=== PATIENT | female | born 1955 | race Caucasian/White ===

== ENCOUNTER → 2017-04-30 | Outpatient (CLI) | payer OTHER ==
--- NOTE | 2017-04-30 14:49 | US ---
EXAMINATION TYPE: US thyroid st tissue head/neck DATE OF EXAM: 04/30/2017 COMPARISON: 06/21/2015 CLINICAL HISTORY: E04.1 SINGLE THYROID NODULE. Right thyroidectomy 2 years ago GLAND SIZE: Right Lobe: Surgically absent Left Lobe: 4.0 x 1.3 x 1.2 cm Overall Parenchyma: homogeneous Isthmus Thickness: 0.2 cm NODULES RIGHT: # of nodules measured on right: Surgically absent LEFT: # of nodules measured on left: 1 1. 0.3 X 0.3 x 0.3 cm hypoechoic nodule at the lower pole with echogenic foci, well defined margins ; . This nodule is as tall as it is wide. and shows no intranodular vascularity. Prior size: no prior documented ISTHMUS: # of nodules measured in the isthmus: 0 Bilateral neck scanned, no evidence of lymphadenopathy. IMPRESSION: 1. STATUS POST RIGHT-SIDED THYROIDECTOMY. 2. TINY, 3 MM LEFT THYROID NODULE.
== END | disposition home or self-care (01) ==
LOC: RADUSWWP 14:06
PROVIDERS: ATTEND Family Medicine
DX: E04.1 Nontoxic single thyroid nodule (principal); E89.0 Postprocedural hypothyroidism
CPT/HCPCS: 76536

== ENCOUNTER → 2018-03-04 | Outpatient (CLI) | payer OTHER ==
--- NOTE | 2018-03-08 09:14 | MM ---
Reason for exam: screening (asymptomatic). Last mammogram was performed 2 years and 2 months ago. History: Patient is postmenopausal. Family history of breast cancer in father at age 50. Took estrogen for 1 year. Physical Findings: A clinical breast exam by your physician is recommended on an annual basis and results should be correlated with mammographic findings. MG Screening Mammo w CAD Bilateral CC and MLO view(s) were taken. Prior study comparison: December 20, 2015, bilateral MG screening mammo w CAD. March 13, 2013, bilateral digital screening mammo w/CAD. There are scattered fibroglandular densities. Pacemaker generator on the left. No significant changes when compared with prior studies. ASSESSMENT: Negative, BI-RAD 1 RECOMMENDATION: Routine screening mammogram of both breasts in 1 year.
== END | disposition home or self-care (01) ==
LOC: RADMAMWWP 11:17
PROVIDERS: ATTEND Obstetrics & Gynecology
DX: Z12.31 Encounter for screening mammogram for malignant neoplasm of breast (principal); Z80.3 Family history of malignant neoplasm of breast
CPT/HCPCS: 77067

== ENCOUNTER → 2019-04-07 | Outpatient (CLI) | payer OTHER ==
--- NOTE | 2019-04-08 12:56 | US ---
EXAMINATION TYPE: US thyroid st tissue head/neck DATE OF EXAM: 04/07/2019 COMPARISON: 04/30/2017 CLINICAL HISTORY: E04.1 Thyroid Nodule. Right thyroidectomy, follow up left thyroid nodule GLAND SIZE: Right Lobe: Surgically absent Left Lobe: 4.5 x 1.2 x 1.4cm Overall Parenchyma: homogeneous Isthmus Thickness: 0.3 cm NODULES RIGHT: # of nodules measured on right: 0, surgically absent right thyroid gland. LEFT: # of nodules measured on left: 0.2 x 0.2 x 0.2 cm hypoechoic nodule, previously measuring 0 .3 cm. ISTHMUS: # of nodules measured in the isthmus: 0 IMPRESSION: No interval enlargement of the previously seen approximately 2 mm left thyroid nodule in comparison t o the exam of 2016. This is presumably benign. Surgical absence of the right thyroid gland.
== END | disposition home or self-care (01) ==
LOC: RADUSWWP 16:50
PROVIDERS: ATTEND Family Medicine
DX: E04.1 Nontoxic single thyroid nodule (principal); E89.0 Postprocedural hypothyroidism
CPT/HCPCS: 76536

== ENCOUNTER → 2020-08-30 | Outpatient (CLI) | payer OTHER ==
--- NOTE | 2020-08-30 15:58 | CT ---
EXAMINATION TYPE: CT upper extremity RT wo con DATE OF EXAM: 08/30/2020 COMPARISON: None HISTORY: Right thumb pain without injury for 1 year. TECHNIQUE: CT imaging of the right hand performed without intravenous contrast. Coronal and sagittal reformatted images obtained. Three-dimensional images were generated and utilized on a separate works tation. CT DLP: 179.5 mGycm Automated exposure control for dose reduction was used. FINDINGS: No acute fracture or dislocation of the right hand. There is ulnar subluxation of the base of the fir st digit proximal phalanx in relation to the metacarpal head. Degenerative subchondral cystic changes , joint space narrowing, and mild sclerosis of the first metacarpophalangeal joint. Tiny well cortica caleb ossific density at the volar aspect of the first interphalangeal joint may represent old avulsion fracture fragment. Subchondral cystic degenerative change of the ulnar carpal bones. Remaining joint spaces are maintained. Radioulnar alignment normal. Myofascial planes are maintained. No soft tissue edema. 3-dimensional imaging consistent with the above findings. IMPRESSION: 1. No acute fracture or dislocation of the right hand. 2. 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 3. Subchondral cystic degenerative change of the carpal bones. 4. Tiny well-corticated calcific density at the volar base of the first digit distal phalanx may repr esent old avulsion fracture fragment.
== END | disposition home or self-care (01) ==
LOC: RADCTMAIN 11:00
PROVIDERS: ATTEND Family Medicine
DX: M18.11 Unilateral primary osteoarthritis of first carpometacarpal joint, right hand (principal); S63.061A Subluxation of metacarpal (bone), proximal end of right hand, initial encounter; M85.641 Other cyst of bone, right hand

== ENCOUNTER → 2021-08-15 | Outpatient (CLI) | payer OTHER ==
[2021-08-15 14:46] LABS: Basophils # (A) 0.1 k/uL (0-0.2); Basophils % (A) 1 %; Eosinophils # (A) 0.3 k/uL (0-0.7); Eosinophils % (A) 3 %; HCT 45.4 % (34.0-46.0); HGB 14.6 gm/dL (11.4-16.0); Lymphocytes # (A) 2.3 k/uL (1.0-4.8); Lymphocytes % (A) 27 %; MCH 31.4 pg (25.0-35.0); MCHC 32.3 g/dL (31.0-37.0); MCV 97.2 fL (80.0-100.0); Mean Platelet Volume 8.3; Monocytes # (A) 0.4 k/uL (0-1.0); Monocytes % (A) 5 %; Neutrophils # (A) 5.1 k/uL (1.3-7.7); Neutrophils % (A) 61 %; Platelet Count 237 k/uL (150-450); RBC 4.66 m/uL (3.80-5.40); RDW 12.6 % (11.5-15.5); WBC 8.4 k/uL (3.8-10.6)
[2021-08-15 14:57] LABS: African American GFR (CKD) >90 (>60 ml/min/1.73 sqM); Anion Gap 7 mmol/L; Blood Urea Nitrogen 42 mg/dL (7-17); Carbon Dioxide 25 mmol/L (22-30); Chloride 103 mmol/L (98-107); Glucose 86 mg/dL (74-99); Non-African American GFR(CKD) >90 (>60 ml/min/1.73 sqM); Potassium 4.7 mmol/L (3.5-5.1); Sodium 135 mmol/L (137-145)
== END | disposition home or self-care (01) ==
LOC: LABPAT 13:32
PROVIDERS: ATTEND Obstetrics & Gynecology
DX: Z01.812 Encounter for preprocedural laboratory examination (principal); N81.11 Cystocele, midline
CPT/HCPCS: 36415; 80051; 82565; 82947; 84520; 85025; 87086

== ENCOUNTER 2021-08-25 07:14 | Day surgery (SDC) | payer OTHER ==
[2021-08-20 10:09] VITALS: BMI 27.4
--- NOTE | 2021-08-21 09:59 | HP ---
HISTORY AND PHYSICAL This is a 66-year-old white female who presents with increasing pelvic organ prolapse and urge incontinence. She is menopausal and not receiving hormone replacement therapy. She denies any vaginal bleeding. She is having no additional vasomotor symptoms. She is currently sexually active. She is declining pessary use and is presenting today for surgical repair. PAST MEDICAL HISTORY: Is significant for asthma, hypothyroidism, obesity. PAST SURGICAL HISTORY: Cholecystectomy in 1992, gastric bypass 2001, hand surgery 2019, of the right hand. Heel spurs removed in 1989. Right knee replacement 2008, on the right knee, left knee replaced 2016. Pacemaker placed 2014. Right thyroidectomy. CURRENT MEDICATIONS: Adderall XR 30 mg capsules twice daily. Bupropion, hydrochlorothiazide 150 mg once daily. Celexa daily. Klonopin daily at bedtime. Singulair 10 mg once daily in the evening. Synthroid 112 mcg each morning. Trazodone 50 mg orally daily. Vitamin D2 capsules daily, Voltaren daily. ALLERGIES: None known. FAMILY HISTORY: Significant for male breast cancer in her father age 49. REPRODUCTIVE HISTORY: Normal spontaneous vaginal delivery x4, all unremarkable. SOCIAL HISTORY: Patient drinks caffeine daily, she denies alcohol or tobacco. She works with the [employer]. EXAM: Patient is 5 foot 6.25 inches, 173 pounds, BMI 27, 98% O2 saturation on room air, pulse 81, blood pressure 132/80. HEENT exam reveals no thyromegaly, trachea midline, good dentition. CHEST: Clear to auscultation in all cunningham, anteriorly and posteriorly by auscultation. CARDIAC exam reveals a regular rate and rhythm, pacemaker noted. The BREASTS are bilaterally symmetric to inspection with no skin dimpling, nipple discharge, axillary adenopathy, or discernible lesions or masses. ABDOMEN: Soft, nontender, no organosplenomegaly, no CVA tenderness. Active bowel sounds. No herniorrhaphy. EXTREMITIES revealed no edema, there is limited range of motion in the knees. Otherwise, good peripheral pulses. External GENITALIA are normal in appearance for age without discharge or inflammatory lesions. There is a grade 3-4 cystocele present, grade 2-3 uterine prolapse. No obvious rectocele. Uterus is small, mobile, midline and nontender. Adnexa are negative bilaterally. Cervix appears healthy to examination, Pap smear up to date and normal. Anus is within normal limits, no hemorrhoids, good sphincter tone, FIT negative stool. NEUROLOGIC: The patient is completely intact, alert and oriented x3 with good judgment. IMPRESSION: Increasingly symptomatic grade 3-4 cystocele, grade 2-3 uterine prolapse. Patient wishing surgical repair, declining option for pessary. Second opinion is offered and declined. PLAN: We will proceed with vaginal hysterectomy, anterior colporrhaphy. Patient understands risks of bleeding, infection, perforation or damage to bowel, bladder, ureters, or indeed any pelvic or abdominal organs. She understands the risks of aspiration, nerve damage, or even , anesthetic. All questions have been answered and I believe patient understands our discussion with no question or issue. MMODL / IJN: [id number] /
[~2021-08-25 07:14] MED LIST: DEXAMETHASONE SOD PHOSPHATE 4 MG/ML 1 ML VIAL IV ONE; HYDROmorphone 0.5 MG/0.5 ML SYRINGE IVP PRN; LIDOCAINE 1% (10MG/ML) FOR IV START INTRADERMA PRN; ONDANSETRON 4 MG/2 ML VIAL IVP ONE; ONDANSETRON 4 MG/2 ML VIAL IVP PRN
[2021-08-25] MEDS: LACTATED RINGERS 1,000 ML IV SCH ×2 (08:05→16:40)
[2021-08-25] MEDS ORDERED: MIDAZOLAM 2 MG/2 ML VIAL IVP ONE (08:18)
[2021-08-25] MEDS ORDERED: ACETAMINOPHEN IV (For NPO) 1,000 MG/100 ML VIAL ONE (09:21)
[2021-08-25] MEDS ORDERED: LIDOCAINE 1% INJ 10MG/ML (20 ML MDV) ONE (09:21)
[2021-08-25] MEDS ORDERED: SUCCINYLCHOLINE CHLORIDE 100 MG/5 ML SYR IV ONE (09:21)
[2021-08-25] MEDS ORDERED: fentaNYL (PF) 50 MCG/ML 2 ML AMP ONE (09:21)
[2021-08-25] MEDS ORDERED: MORPHINE SULFATE (PF) 0.3 MG/0.3 ML SYR ONE (09:21)
[2021-08-25] MEDS ORDERED: PROPOFOL 10 MG/ML 20 ML VIAL IV ONE (09:21)
[2021-08-25] MEDS ORDERED: KETOROLAC 15 MG/ML 1 ML VIAL ONE (09:21)
[2021-08-25] MEDS ORDERED: VASOPRESSIN 20 UNIT/ML 1 ML VIAL SQ ONE (09:46)
[2021-08-25] MEDS ORDERED: BACITRACIN ZINC 500 UNIT/GM OINT 28.4 GM TUBE TOPICAL ONE (10:04)
[2021-08-25] MEDS ORDERED: LACTATED RINGERS 1,000 ML IV ONE (10:21)
[2021-08-25] MEDS ORDERED: GELATIN SPONGE,ABSORB (SMALL) 1 EACH SPONGE TOPICAL ONE (10:25)
[2021-08-25] MEDS ORDERED: IBUPROFEN 600 MG TAB PO PRN (10:52)
[2021-08-25] MEDS ORDERED: METOCLOPRAMIDE 5 MG/ML 2 ML VIAL IVP PRN (10:52)
[2021-08-25] MEDS ORDERED: ZOLPIDEM 5 MG TAB PO PRN (10:52)
[2021-08-25] MEDS ORDERED: KETOROLAC 15 MG/ML 1 ML VIAL IVP PRN (10:52)
[2021-08-25] MEDS ORDERED: SIMETHICONE 80 MG CHEWABLE PO PRN (10:52)
--- NOTE | 2021-08-25 10:52 | P.OP ---
Date of Procedure: 08/25/21 Preoperative Diagnosis: Genetic uterine prolapse, cystocele Postoperative Diagnosis: Same, normal-appearing ovaries bilaterally Procedure(s) Performed: Vaginal hysterectomy, cystocele repair Anesthesia: GUNJAN Surgeon: Lillian Ortiz Associate Team Physician #1: Morgan Sheehan Estimated Blood Loss (ml): 125 IV fluids (ml): 600 Urine output (ml): 450 Pathology: other (Cervix and uterus) Condition: stable Disposition: PACU Operative Findings: Atrophic, normal-appearing ovaries bilaterally Description of Procedure: Patient is brought to the operating suite where a general anesthetic is administered after a spinal with Duramorph was placed in the preoperative area. She is placed in the dorsal lithotomy position. The cervix, vagina, perineal bodies are all prepped and draped in usual sterile fashion. The appropriate timeout is performed to assure proper patient and procedural identification. Antibiotics are given. The weighted speculum was placed into the vagina. The bladder is drained for approximately 450 mL of clear yellow urine. The anterior lip of the cervix is grasped with a double-tooth tenaculum. The cervix is injected circumferentially with a dilute Pitressin solution. A [place] blade scalpel is used to incise circumferentially with a V positioning at 6:00. Sponge rolled finger is used to sweep the mucosa from the underlying plane. At all times the bladder is Well from the operative field to avoid bladder and/or ureteral injury. Peritoneum is entered at 6:00 and suture tied with 2-0 Vicryl. Leighton clamps are used across the uterosacral ligaments, these are clamped cut and suture ligated and held laterally with a hemostat. Uterine vasculature is identified, clamped cut and suture ligated. Please note that 0 Vicryl sutures used for the entire hysterectomy portion of the procedure. 2 additional pedicles are taken superior to the vessels. The uterus is then "walked out". Peritoneum is entered at 6:00, Leighton clamps are used across the final pedicles. Cervix and uterus are removed and sent to pathology. The pedicles are suture tied with 0 Vicryl, flashed, and retied for excellent hemostasis. Bilateral ovaries appeared normal to inspection. All pedicles are vascular Demetrius secure and dry. The speculum is then changed to the shallow billed speculum. The 2-0 Vicryl at 6:00 is brought around in a pursestring fashion to close the peritoneum. Care is taken to keep all bowel and fat out of the closure. The uterosacral ligaments are now brought across to incorporate the opposite ligament and vaginal mucosa. 2 additional trlyae-ul-esawn sutures of 0 Vicryl are used to close the cuff. The anterior portion is left open, held with Allis clamps. The cystocele repair is then started. The anterior vaginal mucosa is injected with the same dilute Pitressin solution and a plane is developed. Metzenbaum scissors are used in the midline to incise the mucosa. Sponge rolled finger is used to sweep the underlying mucosa from the overlying fascial edge. Florez catheter is replaced, urine is clear. Edges are brought together in the midline using 0 Vicryl suture to reduce the cystocele. The redundant mucosa is trimmed with Metzenbaum scissors. 2-0 Vicryl is used in a whipstitch to close the anterior vaginal mucosa. A small portion of Gelfoam is placed high in the left corner for a small amount of oozing. Hemostasis is excellent. Vagina is packed with one-inch iodophor gauze with basic tracing. Florez again is noted to be draining clear urine. All sponge needle and enhancement counts are correct. Patient is brought back to recovery room in very good condition with stable vital signs including a blood pressure of 114/76, pulse 61.
[2021-08-25 12:25] VITALS: RESP 16
[2021-08-25] MEDS: diphenhydrAMINE 50 MG/ML 1 ML VIAL IVP PRN ×2 (16:38→22:28)
[2021-08-25] MEDS ORDERED: MONTELUKAST 10 MG TAB PO SCH (21:00)
[2021-08-25] MEDS ORDERED: clonazePAM 1 MG TAB PO ONE (21:00)
[2021-08-25] MEDS ORDERED: BACLOFEN 10 MG TAB PO PRN (21:00)
[2021-08-25] MEDS ORDERED: CITALOPRAM HYDROBROMIDE 20 MG TAB PO SCH (21:00)
[2021-08-25] MEDS ORDERED: traZODone HCL 50 MG TAB PO SCH (21:00)
[2021-08-26 03:05] VITALS: TEMP 98
[2021-08-26] MEDS ORDERED: LEVOTHYROXINE 125 MCG TAB PO SCH (06:30)
--- NOTE | 2021-08-26 07:46 | P.DS ---
Providers Date of admission: 08/25/21 Expected date of discharge: 08/26/21 Attending physician: Lillian Ortiz Primary care physician: [facility] Course: This is a 66-year-old female who presented with increasingly symptomatic uterine prolapse and cystocele for surgical repair. She was counseled thoroughly and declined the option of pessary. She is an otherwise healthy individual, please see dictated history and physical for details. Under my care yesterday she underwent vaginal hysterectomy and anterior colporrhaphy. Vaginal packing was placed along with Florez catheter. Ovaries were left in situ per her wishes. Surgery was unremarkable, please see dictated operative notes for details. This morning the patient is doing well. Florez catheter and vaginal packing had been removed. Vital signs are stable and she is afebrile. There is only scant vaginal bleeding. Chest is clear in all cunningham. Extremities are negative for edema. Abdomen is soft and nontender, active bowel sounds. No CVA tenderness. Bladder training is pending spontaneous void. Patient is judged to be in very good condition for discharge home. After successful void and measurement of post void residual later today, she will be sent home. She will follow-up with me in the office in 2 weeks. She is reminded no intercourse, tampons or douching. She will use [id number] Advil or Aleve, or Motrin as needed for pain. She is instructed to call me with any fevers shakes or chills, foul smelling or copious vaginal drainage, with any pain not alleviated by [id number] products, or indeed with any concerns. She will resume all of her home medications at this time. No heavy lifting, no driving for 2 weeks, no vacuuming. Assessment: Doing well postoperative day #1 Patient Condition at Discharge: Good Plan - Discharge Summary Discharge Rx Participant: No New Discharge Prescriptions: No Action Diclofenac Sodium [Voltaren] 75 mg PO BID traZODone HCL [Desyrel] 50 mg PO HS clonazePAM [KlonoPIN] 2 mg PO HS buPROPion HCL [Wellbutrin XL] 300 mg PO DAILY Levothyroxine Sodium [Synthroid] 125 mcg PO DAILY Citalopram Hydrobromide [CeleXA] 40 mg PO HS Dextroamphetamine/Amphetamine [Adderall] 30 mg PO DAILY Cyanocobalamin [Vitamin B-12] 5,000 mcg SL DAILY Cholecalciferol [Vitamin D3 (25 Mcg = 1000 Iu)] 5,000 unit PO DAILY Trospium Chloride 20 mg PO DAILY Montelukast [Singulair] 10 mg PO DAILY Baclofen [Lioresal] 20 mg PO HS Discharge Medication List Citalopram Hydrobromide [CeleXA] 40 mg PO HS 08/06/15 [History] Diclofenac Sodium [Voltaren] 75 mg PO BID 08/06/15 [History] Levothyroxine Sodium [Synthroid] 125 mcg PO DAILY 08/06/15 [History] buPROPion HCL [Wellbutrin XL] 300 mg PO DAILY 08/06/15 [History] clonazePAM [KlonoPIN] 2 mg PO HS 08/06/15 [History] traZODone HCL [Desyrel] 50 mg PO HS 08/06/15 [History] Cholecalciferol [Vitamin D3 (25 Mcg = 1000 Iu)] 5,000 unit PO DAILY 09/06/15 [History] Cyanocobalamin [Vitamin B-12] 5,000 mcg SL DAILY 09/06/15 [History] Dextroamphetamine/Amphetamine [Adderall] 30 mg PO DAILY 09/06/15 [History] Baclofen [Lioresal] 20 mg PO HS 08/20/21 [History] Montelukast [Singulair] 10 mg PO DAILY 08/20/21 [History] Trospium Chloride 20 mg PO DAILY 08/20/21 [History] Follow up Appointment(s)/Referral(s): Lillian Ortiz MD [STAFF PHYSICIAN] - 2 Weeks Discharge Disposition: HOME SELF-CARE
[2021-08-26 07:49] VITALS: BP 115/71; PULSE 64
[2021-08-26] MEDS ORDERED: buPROPion 100 MG TAB PO SCH (09:00)
[2021-08-26] MEDS ORDERED: ACETAMINOPHEN TAB 325 MG TAB PO PRN (10:53)
--- NOTE | 2021-08-26 13:15 | P.ANPRN ---
Procedure Note - Anesthesia - Epidural/Spinal Spinal Time Out Performed: Yes Date of Procedure: 08/26/21 Procedure Start Time: 08:17 Procedure Stop Time: 08:20 Location of Patient: PreOp Indication: Acute Post-Operative Pain, Requested by Surgeon Sedation Type: Sedate with meaningful contact maintained Preparation: Sterile Prep Position: Sitting Needle Guage: 25 Blood Aspirated: No Pain Paresthesia on Injection Noted: No Events: Uneventful and Well Tolerated (duramorph 300 leidy plus fentayl 25 leidy)
== END 2021-08-26 11:05 | disposition home or self-care (01) ==
LOC: OR 07:14 → 4FBP 10:53 → OR 08-26 11:05
PROVIDERS: ATTEND Obstetrics & Gynecology
DX: N81.4 Uterovaginal prolapse, unspecified (principal); J45.909 Unspecified asthma, uncomplicated; E66.9 Obesity, unspecified; Z68.28 Body mass index [BMI] 28.0-28.9, adult; Z90.49 Acquired absence of other specified parts of digestive tract; Z98.84 Bariatric surgery status; E89.0 Postprocedural hypothyroidism; Z98.890 Other specified postprocedural states; Z96.651 Presence of right artificial knee joint; Z95.0 Presence of cardiac pacemaker; Z79.899 Other long term (current) drug therapy
CPT/HCPCS: 86900; 86901; 86850; 88307; 87635; 58260; 57240; J2250; J1200; J1100; J0690; J2405; J2001; J2274; J3010; J0131; J1885; J0330; J2704

== ENCOUNTER → 2021-10-08 | Outpatient (CLI) | payer OTHER ==
--- NOTE | 2021-10-09 11:53 | MM ---
Reason for exam: screening (asymptomatic). Last mammogram was performed 3 years and 7 months ago. History: Patient is postmenopausal. Family history of breast cancer in father at age 50. Took estrogen for 1 year. Physical Findings: A clinical breast exam by your physician is recommended on an annual basis and results should be correlated with mammographic findings. MG Screening Mammo w CAD Bilateral CC and MLO view(s) were taken. Prior study comparison: March 04, 2018, bilateral MG screening mammo w CAD. December 20, 2015, bilateral MG screening mammo w CAD. There are scattered fibroglandular densities. No significant changes when compared with prior studies. ASSESSMENT: Benign, BI-RAD 2 RECOMMENDATION: Routine screening mammogram of both breasts in 1 year.
== END | disposition home or self-care (01) ==
LOC: RADMAMWWP 09:01
PROVIDERS: ATTEND Obstetrics & Gynecology
DX: Z12.31 Encounter for screening mammogram for malignant neoplasm of breast (principal); Z80.3 Family history of malignant neoplasm of breast
CPT/HCPCS: 77067

== ENCOUNTER → 2024-05-01 | Outpatient (CLI) | payer MEDICARE ==
--- NOTE | 2024-05-02 07:45 | BD ---
EXAMINATION TYPE: Axial Bone Density DATE OF EXAM: 05/01/2024 CLINICAL HISTORY: 68 years old Female. ICD-10 CODE: Z12.31 SCR MAMMO M85.80 OTHER DIS Height: 65in Weight: 247lb FRAX RISK QUESTIONS: History of Fracture in Adulthood: yes Secondary Osteoporosis: RISK FACTORS HISTORY OF: Surgery to Spine/Hip(right/left)/Wrist (right/left): discectomy and laminectomy of lumbar spine When: 2016 MEDICATIONS: Thyroid Medications: Which medication: Synthroid How Lon years EXAM MEASUREMENTS: Bone mineral densitometry was performed using the [employer] System. Bone mineral density about the R hip (g/cm2): 0.704 Bone mineral density about the L hip (g/cm2): 0.654 T Score values are as follows: -----R Neck: -2.4 -----L Neck: -2.3 -----R Total: -2.4 -----L Total: -2.8 Z Score values are as follows: -----R Neck: -1.6 -----L Neck: -1.5 -----R Total: -2.0 -----L Total: -2.4 Bone mineral density has: Decreased -17.4% since study of: 03-13-13 FRAX%s: The graph provided illustrates a 18.9% chance for a major osteoporotic fx and a 3.8% chance f or the hips probability for fx in 10 years time. IMPRESSION: Osteoporosis (T Score less than -2.5). There is increased fracture risk and therapy is usually indicated based on age. Re-Screen 1-2 years. NOTE: T-SCORE=SD OF THE YOUNG ADULT MEAN.
--- NOTE | 2024-05-02 09:11 | MM ---
Reason for Exam: Screening (asymptomatic). Last mammogram was performed 2 year(s) and 7 month(s) ago. Patient History: Menarche at age 14. First Full-Term at age 22. Postmenopausal. Patient used Estrogen for 1 year. Father had breast cancer, age 50. Risk Values: María 5 year model risk: 1.5%. NCI Lifetime model risk: 5.4%. Prior Study Comparison: 12/20/2015 Bilateral Screening Mammogram, [facility]. 03/04/2018 Bilateral Screening Mammogram, [facility]. 10/08/2021 Bilateral Screening Mammogram, [facility]. Tissue Density: There are scattered areas of fibroglandular density. Findings: Analyzed By CAD. There is no suspicious group of microcalcifications or new suspicious mass in either breast. Overall Assessment: Benign, BI-RAD 2 Management: Screening Mammogram of both breasts in 1 year. . Patient should continue monthly self-breast exams. A clinical breast exam by your physician is recommended on an annual basis. This exam should not preclude additional follow-up of suspicious palpable abnormalities. Note on María scores and lifetime risk: 1. A María score greater than 3% is considered moderate risk. If this is the case, consider specialist referral to assess eligibility for a risk reducing agent. 2. If overall lifetime risk for the development of breast cancer is 20% or higher, the patient may qualify for future screening with alternating mammogram and breast MRI. Electronically signed and approved by: Lavelle Kline M.D. Radiologis
== END | disposition home or self-care (01) ==
LOC: RADMAMWWP 10:23
PROVIDERS: ATTEND Family Medicine
DX: Z12.31 Encounter for screening mammogram for malignant neoplasm of breast (principal); M85.89 Other specified disorders of bone density and structure, multiple sites; Z80.3 Family history of malignant neoplasm of breast; Z78.0 Asymptomatic menopausal state
CPT/HCPCS: 77063; 77067; 77080

== ENCOUNTER → 2025-04-27 | Outpatient (CLI) | payer MEDICARE, BC ==
--- NOTE | 2025-04-27 13:11 | US ---
EXAMINATION TYPE: US thyroid st tissue head/neck DATE OF EXAM: 04/27/2025 COMPARISON: US 04/07/2019 CLINICAL INDICATION: Female, 69 years old with history of E04.1 NONTOXIC SING THY NODULE; Pt takes le vothyroxine. Hx right thyroid lobe removed TECHNIQUE: Grayscale and color Doppler imaging of the thyroid gland. FINDINGS: GLAND SIZE: Right Lobe: Surgically absent Left Lobe: 4.4 x 1.4 x 1.7 cm Overall Parenchyma: homogeneous Isthmus Thickness: 0.24 cm NODULES RIGHT: # of nodules measured on right: 0 LEFT: # of nodules measured on left: 1 less than 5 mm nodule seen, not fully measured, measured 3 mm in transverse. Prior size: 0.3 cm ISTHMUS: # of nodules measured in the isthmus: 0 Bilateral neck scanned, no evidence of lymphadenopathy. The right thyroid lobe. Stable small hypodense left thyroid nodule with a 3 mm nodule redemonstrated. IMPRESSION: As above. No new suspicious nodules or suspicious adenopathy. Highest TI-RADS level nodule reported: 2017 ACR TI-RADS LEVEL: TI-RADS 1 - BENIGN: No FNA TI-RADS assessment score and recommendation for follow-up based on appropriate scoring and treatment protocols. TR1 Benign No FNA TR2 Not suspicious No FNA TR3: If nodule size is ? 2.5 cm, FNA is recommended. If nodule size is ? 1.5 cm, follow-up imaging at 1, 3, and 5 years is recommended. TR4: If nodule size is ? 1.5 cm, FNA is recommended. If nodule size is ? 1.0 cm, follow-up imaging at 1, 2, 3, and 5 years is recommended. TR5: If nodule size is ? 1.0 cm, FNA is recommended. If nodule size is ? 0.5 cm, annual follow-up for up to 5 years is recommended. TR 1 thyroid nodules have a 0.3 % risk of malignancy. TR 2 thyroid nodules have a 1.5 % risk of malignancy. TR 3 thyroid nodules have a 4.8 % risk of malignancy. TR 4 thyroid nodules have a 9.1 % risk of malignancy. TR 5 thyroid nodules have a 35 % risk of malignancy. [email or web address] [facility], , 04/27/2025 1:09 PM
== END | disposition home or self-care (01) ==
LOC: RADUSWWP 12:46
PROVIDERS: ATTEND Family Medicine
DX: E04.2 Nontoxic multinodular goiter (principal)
CPT/HCPCS: 76536

== ENCOUNTER → 2025-05-21 | Outpatient (CLI) | payer MEDICARE, BC ==
--- NOTE | 2025-05-21 15:54 | MM ---
Reason for Exam: Screening (asymptomatic). Last screening mammogram was performed 12 month(s) ago. Patient History: Menarche at age 14. First Full-Term at age 22. Postmenopausal. Patient used Estrogen for 1 year. Father had breast cancer, age 50. Risk Values: María 5 year model risk: 1.5%. NCI Lifetime model risk: 5.2%. Prior Study Comparison: 03/04/2018 Bilateral Screening Mammogram, [facility]. 10/08/2021 Bilateral Screening Mammogram, [facility]. 05/01/2024 Bilateral MG 3D screening mammo w/cad, [facility]. Tissue Density: There are scattered areas of fibroglandular density. Findings: Analyzed By CAD. Pacemaker generator over the left pectoralis. Bilateral vascular calcifications. There is no suspicious group of microcalcifications or new suspicious mass in either breast. Overall Assessment: Benign, BI-RAD 2 Management: Screening Mammogram of both breasts in 1 year. Patient should continue monthly self-breast exams. A clinical breast exam by your physician is recommended on an annual basis. This exam should not preclude additional follow-up of suspicious palpable abnormalities. Note on María scores and lifetime risk: 1. A María score greater than 3% is considered moderate risk. If this is the case, consider specialist referral to assess eligibility for a risk reducing agent. 2. If overall lifetime risk for the development of breast cancer is 20% or higher, the patient may qualify for future screening with alternating mammogram and breast MRI. [facility], , 05/21/2025 3:50 PM. Electronically signed and approved by: Volodymyr Avalos M.D. Radiologist
== END | disposition home or self-care (01) ==
LOC: RADMAMWWP 08:31
PROVIDERS: ATTEND Family Medicine
DX: Z12.31 Encounter for screening mammogram for malignant neoplasm of breast (principal); R92.323 Mammographic fibroglandular density, bilateral breasts; Z78.0 Asymptomatic menopausal state; Z80.3 Family history of malignant neoplasm of breast
CPT/HCPCS: 77063; 77067